=== PATIENT | female | born 1995 | race Caucasian/White ===

== ENCOUNTER 2018-04-02 14:19 | Observation (INO) | payer OTHER ==
[~2018-04-02] VITALS: Ht 157.5 cm; Wt 71.4 kg
[2018-04-02] MEDS ORDERED: LACTATED RINGERS 1,000 ML IV SCH (14:37)
[2018-04-02] MEDS ORDERED: PREN-3 PO (14:44)
[2018-04-02] MEDS ORDERED: FOLI-17 PO (14:45)
[2018-04-02] MEDS ORDERED: CEPH-375 PO (14:46)
[2018-04-02 14:52] VITALS: BP 107/62
[2018-04-02] MEDS ORDERED: CEFAZOLIN PMX 1GM/50ML IVPB ONE (15:00)
[2018-04-02] MEDS ORDERED: INDOMETHACIN 50 MG CAPSULE ONE (15:29)
[2018-04-02] MEDS ORDERED: D5%-LACTATED RINGERS 1,000 ML IV SCH (15:30)
[2018-04-02] MEDS ORDERED: INDOMETHACIN 50 MG CAPSULE PO ONE (15:30)
[2018-04-02 15:46] LABS: BASOPHILS # (AUTO) 0.01 x10^3/uL (0-0.1); BASOPHILS % (AUTO) 0 % (0-1); EOSINOPHILS # (AUTO) 0.06 x10^3/uL (0-0.4); EOSINOPHILS % (AUTO) 1 % (1-7); LYMPHOCYTES # (AUTO) 1.68 x10^3/uL (1-3.4); LYMPHOCYTES % (AUTO) 13 % (22-44); MD NO; MEAN CORPUSCULAR HEMOGLOBIN 30.5 pg (27.0-34.8); MEAN CORPUSCULAR HGB CONC 34.3 g/dL (32.4-35.8); MEAN PLATELET VOLUME 8.5 fL (7.4-10.4); MONOCYTES % (AUTO) 6 % (2-9); NEUTROPHILS # (AUTO) 10.89 x10^3/uL (1.8-6.8); NEUTROPHILS % (AUTO) 81 % (42-75); PLATELET COUNT 271 x10^3/uL (130-400); RED BLOOD COUNT 3.96 x10^6/uL (3.82-5.3); RED CELL DISTRIBUTION WIDTH 12.7 % (9.6-15.2)
[2018-04-02] MEDS ORDERED: WATER STERILE IV ONE (19:22)
[2018-04-02] MEDS ORDERED: CEFAZOLIN 1,000 MG ONE (19:22)
[2018-04-02] MEDS ORDERED: FENTANYL PF 100 MCG/2ML ONE (19:23)
== END 2018-04-02 23:51 | disposition home or self-care (01) ==
LOC: LDOP 14:19 → LDIP 14:37
PROVIDERS: ADMIT Obstetrics & Gynecology Maternal & Fetal Medicine; ATTEND Obstetrics & Gynecology Maternal & Fetal Medicine
DX: O26.872 Cervical shortening, second trimester (principal); Z3A.24 24 weeks gestation of pregnancy
CPT/HCPCS: 36415; 59320; 85025; 86850; 86900; G0378; J0690; J3010; J7120; J7121

== ENCOUNTER 2018-06-18 00:10 | Inpatient (IN) | payer OTHER ==
[~2018-06-18] VITALS: Ht 157.5 cm; Wt 71.0 kg
[~2018-06-18 00:10] MED LIST: CEPH-375 PO; FOLI-17 PO; PREN-3 PO
[2018-06-18] MEDS ORDERED: OXYTOCIN 30U/ 0.9% NaCL 500ML 500 ML IV ONE (01:43)
[2018-06-18] MEDS ORDERED: D5%-LACTATED RINGERS 1,000 ML IV SCH (01:43)
[2018-06-18] MEDS ORDERED: TERBUTALINE 1 MG/ML, 1ML IVPush PRN (02:00)
[2018-06-18] MEDS ORDERED: ONDANSETRON 2MG/ML, 2ML IVPush PRN ×2 (02:00→16:00)
[2018-06-18] MEDS ORDERED: FENTANYL PF 100 MCG/2ML IV PRN (02:00)
[2018-06-18] MEDS ORDERED: CALCIUM CARBONATE 500 MG TAB.CHEW PO PRN (02:00)
[2018-06-18] MEDS: LACTATED RINGERS 1,000 ML IV SCH ×4 (02:04→14:58)
[2018-06-18 02:07] VITALS: BP 115/74
[2018-06-18] MEDS ORDERED: CALCIUM CARBONATE 500 MG TAB.CHEW ONE (02:22)
[2018-06-18 02:29] LABS: BASOPHILS # (AUTO) 0.04 x10^3/uL (0-0.1); BASOPHILS % (AUTO) 0 % (0-1); EOSINOPHILS # (AUTO) 0.09 x10^3/uL (0-0.4); EOSINOPHILS % (AUTO) 1 % (1-7); LYMPHOCYTES # (AUTO) 2.09 x10^3/uL (1-3.4); LYMPHOCYTES % (AUTO) 14 % (22-44); MD NO; MEAN CORPUSCULAR HEMOGLOBIN 29.4 pg (27.0-34.8); MEAN CORPUSCULAR HGB CONC 34.6 g/dL (32.4-35.8); MEAN CORPUSCULAR VOLUME 84.9 fL (80-100); MEAN PLATELET VOLUME 9.3 fL (7.4-10.4); MONOCYTES # (AUTO) 0.77 x10^3/uL (0.2-0.8); MONOCYTES % (AUTO) 5 % (2-9); NEUTROPHILS # (AUTO) 12.12 x10^3/uL (1.8-6.8); NEUTROPHILS % (AUTO) 80 % (42-75); PLATELET COUNT 263 x10^3/uL (130-400); RED BLOOD COUNT 4.33 x10^6/uL (3.82-5.3); RED CELL DISTRIBUTION WIDTH 12.5 % (9.6-15.2)
[2018-06-18 02:48] LABS: ALANINE AMINOTRANSFERASE 36 U/L (12-78); ALBUMIN 2.5 g/dL (3.4-5.0); ANION GAP 9 mmol/L (5-15); CALCIUM 9.4 mg/dL (8.5-10.1); CHLORIDE 107 mmol/L (98-107); CREATININE 0.64 mg/dL (0.55-1.02)
[2018-06-18 02:50] LABS: ALKALINE PHOSPHATASE 179 U/L (45-117); BILIRUBIN,TOTAL 0.3 mg/dL (0.2-1.0); TOTAL PROTEIN 6.5 g/dL (6.4-8.2)
[2018-06-18] MEDS: PENICILLIN GK 2,500,000 UNITS in DEXTROSE 5% 100 ML IVPB SCH ×4 (04:00→16:26)
[2018-06-18] MEDS ORDERED: OXYTOCIN 30U/ 0.9% NaCL 500ML 500 ML IV PRN (07:53)
[2018-06-18] MEDS ORDERED: OXYTOCIN 30U/ 0.9% NaCL 500ML 500 ML ONE ×2 (08:12→21:23)
[2018-06-18] MEDS ORDERED: FENTANYL/BUPIV./NS/PF 250 ML EPIDCONT SCH ×2 (11:40→15:46)
[2018-06-18] MEDS ORDERED: FENTANYL PF 500 MCG, BUPIVACAINE/PF 0.5%, 30ML 62.5 ML in SODIUM CHLORIDE 0.9% 177.5 ML EPIDCONT SCH (12:00)
[2018-06-18] MEDS ORDERED: FENTANYL PF 100 MCG/2ML ONE ×3 (12:40→14:22)
[2018-06-18] MEDS: FENTANYL PF 100 MCG/2ML IVPush PRN ×2 (12:41→13:41)
[2018-06-18] MEDS ORDERED: BUPIVACAINE 0.25% ONE (14:23)
[2018-06-18] MEDS ORDERED: LACTATED RINGERS 1,000 ML IV SCH (15:46)
[2018-06-18] MEDS ORDERED: LACTATED RINGERS 1,000 ML IVBOLUS PRN (16:00)
[2018-06-18] MEDS ORDERED: EPHEDRINE 50 MG/ML, 1ML IVPush PRN (16:00)
[2018-06-18 19:14] VITALS: BP 110/55
[2018-06-18] MEDS ORDERED: LIDOCAINE 1%, 10ML INFIL ONE (21:00)
[2018-06-18] MEDS ORDERED: MISOPROSTOL 200 MCG TABLET ONE (21:13)
[2018-06-18] MEDS: OXYTOCIN 30U/ 0.9% NaCL 500ML 500 ML IV SCH (21:22)
[2018-06-18] MEDS ORDERED: MISOPROSTOL 200 MCG TABLET PR PRN (21:30)
[2018-06-18] MEDS ORDERED: ONDANSETRON 2MG/ML, 2ML IV PRN (21:30)
[2018-06-18] MEDS ORDERED: BISACODYL 10 MG SUPP PR PRN (21:30)
[2018-06-18] MEDS ORDERED: CARBOPROST TROMETHAMINE 250 MCG/ML, 1ML IM PRN (21:30)
[2018-06-18] MEDS ORDERED: METHYLERGONOVINE 0.2 MG/ML IM PRN (21:30)
[2018-06-18] MEDS ORDERED: ACETAMINOPHEN 325 MG TABLET PO PRN (21:30)
[2018-06-18] MEDS ORDERED: OXYcodone IR 5MG TABLET PO PRN (21:30)
[2018-06-18 22:30] VITALS: BP 101/68
[2018-06-19 02:30] VITALS: BP 105/64
[2018-06-19 04:44] LABS: BASOPHILS # (AUTO) 0.13 x10^3/uL (0-0.1); BASOPHILS % (AUTO) 1 % (0-1); EOSINOPHILS # (AUTO) 0.11 x10^3/uL (0-0.4); EOSINOPHILS % (AUTO) 1 % (1-7); LYMPHOCYTES # (AUTO) 2.09 x10^3/uL (1-3.4); LYMPHOCYTES % (AUTO) 15 % (22-44); MD NO; MEAN CORPUSCULAR HEMOGLOBIN 29.8 pg (27.0-34.8); MEAN CORPUSCULAR HGB CONC 35.2 g/dL (32.4-35.8); MEAN CORPUSCULAR VOLUME 84.7 fL (80-100); MEAN PLATELET VOLUME 9.1 fL (7.4-10.4); MONOCYTES # (AUTO) 0.99 x10^3/uL (0.2-0.8); MONOCYTES % (AUTO) 7 % (2-9); NEUTROPHILS # (AUTO) 11.13 x10^3/uL (1.8-6.8); NEUTROPHILS % (AUTO) 77 % (42-75); PLATELET COUNT 239 x10^3/uL (130-400); RED BLOOD COUNT 4.03 x10^6/uL (3.82-5.3); RED CELL DISTRIBUTION WIDTH 12.6 % (9.6-15.2)
[2018-06-19] MEDS: IBUPROFEN 600 MG TABLET PO PRN ×3 (05:40→22:17)
[2018-06-19] MEDS: OXYcodone/APAP 5/325MG TABLET PO PRN ×3 (05:40→22:17)
[2018-06-19] MEDS: OXYTOCIN 30U/ 0.9% NaCL 500ML 500 ML IV SCH (07:22)
[2018-06-19 08:48] VITALS: BP 96/62
[2018-06-19] MEDS: DOCUSATE 100 MG CAPSULE PO PRN ×2 (09:58→22:17)
[2018-06-19] MEDS: PRENATAL VIT/IRON/FA 1 EACH TABLET PO SCH (09:58)
[2018-06-19 15:14] VITALS: BP 102/71
[2018-06-19 19:15] VITALS: BP 100/65
[2018-06-20] MEDS: IBUPROFEN 600 MG TABLET PO PRN ×2 (07:42→16:29)
[2018-06-20] MEDS: DOCUSATE 100 MG CAPSULE PO PRN (07:42)
[2018-06-20] MEDS: OXYcodone/APAP 5/325MG TABLET PO PRN (07:42)
[2018-06-20] MEDS: PRENATAL VIT/IRON/FA 1 EACH TABLET PO SCH (07:42)
[2018-06-20 07:45] VITALS: BP 89/47
[2018-06-20] MEDS ORDERED: IBUP-1222 PO (16:47)
[2018-06-20] MEDS ORDERED: DOCU-131 PO (16:47)
== END 2018-06-20 18:07 | disposition home or self-care (01) | DRG 806 ==
LOC: LDIP 01:42 → 2NW 22:52
PROVIDERS: ADMIT Obstetrics & Gynecology Maternal & Fetal Medicine; ATTEND Obstetrics & Gynecology Maternal & Fetal Medicine
PROC: 10E0XZZ Delivery of Products of Conception, External Approach (ICD-10-PCS; principal; 2018-06-18)
PROC: 0UQMXZZ Repair Vulva, External Approach (ICD-10-PCS; 2018-06-18)
PROC: 3E0R3BZ Introduction of Anesthetic Agent into Spinal Canal, Percutaneous Approach (ICD-10-PCS; 2018-06-18)
PROC: 00HU33Z Insertion of Infusion Device into Spinal Canal, Percutaneous Approach (ICD-10-PCS; 2018-06-18)
DX: O60.14X0 Preterm labor third trimester with preterm delivery third trimester, not applicable or unspecified (principal); O26.873 Cervical shortening, third trimester; Z37.0 Single live birth; O71.82 Other specified trauma to perineum and vulva; Z3A.35 35 weeks gestation of pregnancy
CPT/HCPCS: 36415; 80053; 85025; 86850; 86900; 99285; G0378; J2540; J3010; J2590; J7120